=== PATIENT | male | born 1990 | race Caucasian/White ===

== ENCOUNTER 2019-07-18 08:56 | Emergency (ER) | payer SELFPAY ==
[~2019-07-18] VITALS: Ht 182.9 cm; Wt 80.7 kg
[2019-07-18 10:03] LABS: Basophils # (auto) 0.1 uL; Eosinophils # (auto) 0.2 uL; Hematocrit 49.1 % (41.0-53.0); Lymphocytes # (auto) 1.6 uL; Lymphocytes % (auto) 28.5 % (10.0-50.0); Mean Corpuscular Hemoglobin 30.4 pg (28.0-32.0); Mean Corpuscular Hgb Conc. 34.6 g/dL (32.0-36.0); Mean Corpuscular Volume 87.8 fL (80.0-100.0); Monocytes # (auto) 0.5 uL; Monocytes % (auto) 9.3 % (0.0-12.0); Neutrophils # (auto) 3.2 uL; Neutrophils % (auto) 58.2 % (37.0-80.0); Nucleated Red Blood Cells % 0.1 %; Platelet Count (auto) 184 10^3/uL (140-450); Red Blood Cells 5.59 10^6/uL (4.5-5.90); Red Cell Distribution Width 13.3 % (11.8-14.3); White Blood Cell 5.5 10^3/uL (4.4-10.8)
[2019-07-18 10:06] LABS: Urine Bacteria NONE SEEN /hpf (None Seen); Urine Blood Negative /uL (Negative); Urine Specific Gravity 1.022 (1.001-1.035); Urine WBC <1 /hpf (0 - 3)
[2019-07-18 10:15] LABS: Albumin 4.4 g/dL (3.4-5.0); Potassium 3.8 mmol/L (3.5-5.1)
[2019-07-18 10:17] LABS: BUN/Creatinine Ratio 9.9
[2019-07-18 10:20] LABS: Bilirubin, Total 0.7 mg/dL (0.2-1.0); Total Protein 7.8 g/dL (6.4-8.2)
[2019-07-18 10:27] VITALS: BP 121/67
[2019-07-18] MEDS ORDERED: KETOROLAC TROMETH 60MG/2ML VIAL IM ONE (10:45)
[2019-07-18] MEDS ORDERED: CARISOPRODOL 350 MG TAB PO ONE (10:45)
== END 2019-07-18 11:16 | disposition home or self-care (01) ==
LOC: ER 08:56
DX: S76.212A Strain of adductor muscle, fascia and tendon of left thigh, initial encounter (principal); N50.3 Cyst of epididymis
CPT/HCPCS: 36415; 76870; 80053; 81001; 85025; 96372; 99284; J1885